=== PATIENT | female | born 1980 | race African-American/Black ===

== ENCOUNTER 2017-07-04 06:50 | Emergency (ER) | payer MEDICAID ==
[~2017-07-04] VITALS: Ht 175.3 cm; Wt 127.0 kg
[2017-07-04 07:00] VITALS: BP 109/86
== END 2017-07-04 14:20 | disposition left against medical advice (07) ==
LOC: ER 06:50
DX: Z53.21 Procedure and treatment not carried out due to patient leaving prior to being seen by health care provider (principal)